=== PATIENT | male | born 1990 | race Caucasian/White ===

== ENCOUNTER 2021-05-15 08:00 | Outpatient (CLI) | payer MEDICAID ==
--- NOTE | 2021-05-15 12:29 | XRAY Report ---
PROCEDURE: Knee 4 View LT INDICATIONS: LEFT KNEE PAIN TECHNIQUE: 3 views of the left knee(s) were acquired. In addition, a weightbearing AP view of both knees was obtained. COMPARISON: None. FINDINGS: BONES/JOINT: No acute, displaced fracture or dislocation. Small moderate suprapatellar joint effusion . SOFT TISSUES: No significant abnormality. IMPRESSION: 1.No acute osseous abnormality. Reviewed by: Adan Kaur MD on 05/15/2021 12:28 PM PDT Approved by: Adan Kaur MD on 05/15/2021 12:28 PM PDT Station ID: [id number]
== END 2021-05-15 23:59 | disposition home or self-care (01) ==
LOC: DI.N 08:00
PROVIDERS: ATTEND Orthopaedic Surgery
DX: M25.562 Pain in left knee (principal)

== ENCOUNTER 2021-10-16 15:58 | Outpatient (CLI) | payer MEDICAID ==
--- NOTE | 2021-10-16 16:31 | XRAY Report ---
PROCEDURE: Thoracic Spine 2 View INDICATIONS: PAIN IN THORACIC SPINE TECHNIQUE: 3 views of the thoracic spine were acquired. COMPARISON: None. FINDINGS: Bones: No fractures or dislocations. Mild rightward curvature of thoracic spine centered at T6 level . Mild compensatory levoscoliosis of lower thoracic spine/upper lumbar spine is seen centered at T11- T12 level. No suspicious bony lesions. 12 pairs of ribs are noted, and appear intact where visualize d. Soft tissues: No paravertebral stripe thickening. IMPRESSION: Very mild S-shaped scoliosis of thoracolumbar spine as above. No compression fracture or spondylolist hesis. Reviewed by: Catrachito Murray MD on 10/16/2021 4:24 PM PDT Approved by: Catrachito Murray MD on 10/16/2021 4:24 PM PDT Station ID: [id number]
== END 2021-10-16 15:59 | disposition home or self-care (01) ==
LOC: DI 15:58
PROVIDERS: ATTEND Nurse Practitioner Family
DX: M54.6 Pain in thoracic spine (principal); M41.9 Scoliosis, unspecified